=== PATIENT | female | born 1965 | race Caucasian/White ===

== ENCOUNTER 2020-09-06 19:13 | Inpatient (IN) ==
[2020-09-06] MEDS ORDERED: Albuterol HFA INHALER 8 gm MDI INH ONE ×2 (19:32)
[2020-09-06 20:25] LABS: ABS Basophils 0.1 10^3/ul (0-0.2); ABS Eosinophils 0.1 10^3/ul (0-0.6); ABS Lymphocytes 1.3 10^3/ul (1.0-4.8); ABS Neutrophils 6.2 10^3/ul (1.5-7.7); Eosinophil % 1.2 %; Hematocrit 32 % (35-47); Hemoglobin 10.8 g/dL (12.0-16.0); Lymphocyte % 14.9 %; Mean Corpuscular HGB Conc 34 g/dL (31-36); Mean Corpuscular Hemoglobin 29 pg (27-31); Mean Corpuscular Volume 86 fL (80-97); Mean Platelet Volume 9.1 fL (7.4-10.4); Platelet Count 518 10^3/uL (150-450); Red Blood Count 3.74 10^6 /uL (3.70-4.87); Red Cell Distribution Width 15 % (10-15); White Blood Count 8.7 10^3/uL (3.5-10.8)
[2020-09-06 20:36] LABS: ALT 19 U/L (7-52); AST 18 U/L (13-39); Albumin 3.2 g/dL (3.2-5.2); Albumin/Globulin Ratio 0.9 (1-3); Alkaline Phosphatase 133 U/L (35-149); Anion Gap 12 mmol/L (2-11); Blood Urea Nitrogen 11 mg/dL (6-24); CO2 Carbon Dioxide 23 mmol/L (22-32); Calcium 8.9 mg/dL (8.6-10.3); Chloride 101 mmol/L (101-111); EGFR African American 85.2 (>60); EGFR Non-African American 70.4 (>60); Globulin 3.4 g/dL (2-4); Glucose 122 mg/dL (70-100); Potassium 3.2 mmol/L (3.5-5.0); Sodium 136 mmol/L (135-145); Total Protein 6.6 g/dL (6.4-8.9)
[2020-09-06 20:54] LABS: Troponin I 0.12 ng/mL (<0.03)
[2020-09-06 21:16] LABS: TSH Ultra Thyroid Stim Horm 2.69 mcIU/mL (0.34-5.60)
[2020-09-06] MEDS ORDERED: Iohexol 350 (CONTRAST) 500 ML MDV IV ONE (21:21)
[2020-09-06] MEDS ORDERED: Furosemide 40 mg/4 ml IV VIAL IV ONE (22:39)
[2020-09-06 23:31] LABS: Troponin I 0.11 ng/mL (<0.03)
[2020-09-07] MEDS ORDERED: Albuterol 2.5mg/3 ml (0.083%) NEB.SOLN INH PRN (00:32)
[2020-09-07] MEDS ORDERED: Potassium Chlor 20 meq TAB.ER PO ONE (01:24)
[2020-09-07 02:07] LABS: Total Iron Binding Capacity 272 mcg/dL (250-450); Transferrin 194 mg/dL (203-362)
[2020-09-07 02:29] LABS: % Iron Saturation 7 % (15-55); Ferritin 298.5 ng/mL (11-307); Iron < 20 ug/dL (50-212); Unsaturated Iron Binding < 257 ug/dL
[2020-09-07 02:33] LABS: Vitamin B12 370 pg/mL (180-914)
[2020-09-07 06:39] LABS: ABS Basophils 0.1 10^3/ul (0-0.2); ABS Eosinophils 0.2 10^3/ul (0-0.6); ABS Lymphocytes 1.5 10^3/ul (1.0-4.8); ABS Monocytes 1.1 10^3/ul (0-0.8); ABS Neutrophils 5.8 10^3/ul (1.5-7.7); Eosinophil % 2.1 %; Hematocrit 32 % (35-47); Hemoglobin 10.7 g/dL (12.0-16.0); Lymphocyte % 16.8 %; Mean Corpuscular HGB Conc 34 g/dL (31-36); Mean Corpuscular Hemoglobin 30 pg (27-31); Mean Corpuscular Volume 88 fL (80-97); Mean Platelet Volume 9.4 fL (7.4-10.4); Nucleated Red Blood Cells % 0.1; Platelet Count 483 10^3/uL (150-450); Red Cell Distribution Width 15 % (10-15); White Blood Count 8.6 10^3/uL (3.5-10.8)
[2020-09-07 07:06] LABS: Anion Gap 11 mmol/L (2-11); Blood Urea Nitrogen 13 mg/dL (6-24); CO2 Carbon Dioxide 22 mmol/L (22-32); Calcium 8.6 mg/dL (8.6-10.3); Chloride 101 mmol/L (101-111); EGFR African American 80.7 (>60); EGFR Non-African American 66.7 (>60); Glucose 98 mg/dL (70-100); Potassium 3.5 mmol/L (3.5-5.0); Sodium 134 mmol/L (135-145)
[2020-09-07] MEDS ORDERED: Potassium Chlor 10 meq TAB PO ONE (09:20)
[2020-09-07] MEDS ORDERED: Perflutren Lipid Microsphere 3 ML VIAL ONE (09:46)
[2020-09-07 12:14] LABS: C Reactive Protein 157.55 mg/L (<8.01)
[2020-09-07] MEDS ORDERED: Furosemide 40 mg/4 ml IV VIAL IV ONE (14:00)
[2020-09-07 14:01] LABS: Erythrocyte Sed Rate 81 mm/Hr (0-29)
[2020-09-07 14:44] LABS: Cholesterol 174 mg/dL; HDL Cholesterol 23.5 mg/dL; LDL Cholesterol 128 mg/dL; Triglycerides 114 mg/dL
[2020-09-07 14:56] LABS: Troponin I 0.11 ng/mL (<0.03)
[2020-09-07] MEDS: Enoxaparin 100 MG/ML SYR SUBCUT SCH (15:02)
[2020-09-08] MEDS: Enoxaparin 100 MG/ML SYR SUBCUT SCH ×2 (02:11→12:53)
[2020-09-08 06:34] LABS: ABS Basophils 0.1 10^3/ul (0-0.2); ABS Eosinophils 0.2 10^3/ul (0-0.6); ABS Lymphocytes 1.7 10^3/ul (1.0-4.8); ABS Monocytes 0.9 10^3/ul (0-0.8); ABS Neutrophils 5.3 10^3/ul (1.5-7.7); Eosinophil % 2.2 %; Hematocrit 36 % (35-47); Lymphocyte % 21.4 %; Mean Corpuscular HGB Conc 33 g/dL (31-36); Mean Corpuscular Hemoglobin 29 pg (27-31); Mean Corpuscular Volume 88 fL (80-97); Mean Platelet Volume 9.7 fL (7.4-10.4); Platelet Count 557 10^3/uL (150-450); Red Blood Count 4.08 10^6 /uL (3.70-4.87); Red Cell Distribution Width 15 % (10-15); White Blood Count 8.2 10^3/uL (3.5-10.8)
[2020-09-08 06:50] LABS: ALT 23 U/L (7-52); AST 23 U/L (13-39); Albumin/Globulin Ratio 0.9 (1-3); Alkaline Phosphatase 129 U/L (35-149); Anion Gap 8 mmol/L (2-11); Blood Urea Nitrogen 16 mg/dL (6-24); CO2 Carbon Dioxide 27 mmol/L (22-32); Calcium 9.3 mg/dL (8.6-10.3); Chloride 102 mmol/L (101-111); Cholesterol 192 mg/dL; EGFR African American 82.9 (>60); EGFR Non-African American 68.5 (>60); Globulin 3.5 g/dL (2-4); Glucose 111 mg/dL (70-100); HDL Cholesterol 26.5 mg/dL; LDL Cholesterol 140 mg/dL; Magnesium 1.8 mg/dL (1.9-2.7); Potassium 3.9 mmol/L (3.5-5.0); Sodium 137 mmol/L (135-145); Total Protein 6.5 g/dL (6.4-8.9); Triglycerides 126 mg/dL
[2020-09-08] MEDS ORDERED: Aspirin EC 81 mg TAB.EC (enteric coated) PO SCH (09:00)
[2020-09-08] MEDS ORDERED: Nitroglycerin 0.2 mg/hr PATCH (5 mg) TRANSDERM SCH (09:00)
[2020-09-08] MEDS ORDERED: Magnesium Sulfate 2 gm BAG 2 GM/50 ML BAG IVPB ONE (12:19)
[2020-09-08] MEDS ORDERED: Iron Sucrose 200 MG in NS 0.9% 100 ml BAG 100 ML IVPB SCH (13:00)
[2020-09-08 16:51] VITALS: BP 133/77
[2020-09-08] MEDS ORDERED: Nitro Patch/OINT Remove PATCH TOPICAL SCH (21:00)
== END 2020-09-08 18:50 | disposition short-term general hospital (02) | DRG 194 ==
LOC: ED 19:13 → MEDTELE 09-07 01:02
PROVIDERS: ADMIT Internal Medicine; ATTEND Internal Medicine